=== PATIENT | male | born 1985 | race Caucasian/White ===

== ENCOUNTER 2017-11-17 08:36 | Emergency (ER) | payer BC ==
[2017-11-17 08:49] VITALS: BP 167/79
--- NOTE | 2017-11-17 09:04 | UC ---
General HPI - HPI Summary HPI Summary: Patient presents with an unremarkable past medical history. He does report pending compensation case regarding knee injury that occurred two years ago, and he was scheduled to go to the pain clinic today but cancelled. He presents today with complaints of generalized body aches, headaches, fatigue , malaise, chest congestion and cough. He denies any recorded fever, but states he believes he has been running a fever. He denies any chest, or abdominal pain , nausea, vomiting, diarrhea, rash. He denies any recent travel or ill contacts. - History of Current Complaint Chief Complaint: UCGeneralIllness Stated Complaint: FEVER,BODYACHES Time Seen by Provider: 11/17/17 08:52 Hx Obtained From: Patient Onset/Duration: Sudden Onset, Lasting Hours Timing: Constant Onset Severity: Moderate Current Severity: Severe Pain Location at: generalized. Associated Signs & Symptoms: Positive: Fever, Headache - Allergy/Home Medications Allergies/Adverse Reactions: Allergies Allergy/AdvReac Type Severity Reaction Status Date / Time No Known Allergies Allergy Verified 11/17/17 08:49 Home Medications: Home Medications Acetaminophen [Acetaminophen Extra Stren] 2 tab PO Q6HR PRN 11/17/17 [History Confirmed 11/17/17] Amphetamine-Dextroamphetamine [Adderall 30 mg-] 1 tab PO BID 11/17/17 [History Confirmed 11/17/17] PMH/Surg Hx/FS Hx/Imm Hx Previously Healthy: Yes - Surgical History Surgical History: Yes Surgery Procedure, Year, and Place: 08/2016- Right Knee surgery- [facility] - Family History Known Family History: Positive: Unknown - Social History Occupation: Unemployed Lives: Alone Alcohol Use: Rare Substance Use Type: None Smoking Status (MU): Former Smoker Type: Cigarettes Amount Used/How Often: 1/2 PPD Length of Time of Smoking/Using Tobacco: 1 can daily - Immunization History Most Recent Influenza Vaccination: NOT UTD Most Recent Tetanus Shot: UNK Most Recent Pneumonia Vaccination: NEVER HAD Review of Systems Constitutional: Fever, Chills, Fatigue Skin: Negative Eyes: Negative ENT: Nasal Discharge, Sinus Congestion Respiratory: Cough Cardiovascular: Negative Gastrointestinal: Negative Genitourinary: Negative Motor: Negative Neurovascular: Negative Musculoskeletal: Arthralgia, Myalgia Neurological: Negative Psychological: Negative Is Patient Immunocompromised?: No All Other Systems Reviewed And Are Negative: Yes Physical Exam Triage Information Reviewed: Yes Appearance: Well-Appearing Vital Signs: Initial Vital Signs Temp 100.3 F 11/17/17 08:44 Pulse 100 11/17/17 08:44 Resp 18 11/17/17 08:44 BP 167/79 11/17/17 08:44 Pulse Ox 99 11/17/17 08:44 Vital Signs Reviewed: Yes Eye Exam: Normal ENT Exam: Normal Neck exam: Normal Neck: Positive: 1 Respiratory Exam: Normal Respiratory: Positive: Lungs clear, Normal breath sounds, No respiratory distress, No accessory muscle use Cardiovascular Exam: Normal Cardiovascular: Positive: RRR, No Murmur Abdominal Exam: Normal Musculoskeletal Exam: Normal Skin Exam: Normal Course/Dx - Course Course Of Treatment: Patient presents with past medical history of knee injury and reported chronic knee pain. He presents today with the primary complaint of generalized body aches, headache with no focal neurologic findings. VS noted to be BP 176/79, T-100.3, P-100, R-18. I appreciate and have reviewed the abnomral VS which I feel are in responce to illness. Patient has no know history of HTN, he is slightly tachcardic from his fever, and generalized stress responce from illness. Rapid influenza was positive and the patient was treated with Tamiflu 75 mg by mouth twice daily for 5 days. I also recommended he rest, increase fluids, and take tylenol and or advil for the myalgias. He was told to follow up with his orthopedist for the injury and complaints of two year onset knee pain, as they have been following him and treating him for this chronic condition. And he is not here for those concerns today. - Differential Dx - Multi-Symptom Differential Diagnoses: Other - influenza Provider Diagnoses: influenza Discharge - Discharge Plan Condition: Stable Disposition: HOME Prescriptions: Ibuprofen TAB* [Motrin TAB* 600 MG] 600 mg PO Q6H PRN #20 tab PRN Reason: generalized discomfort. Oseltamivir CAP* [Tamiflu CAP*] 75 mg PO BID #10 cap Patient Education Materials: Influenza (ED) Forms: *Work Release Referrals: No Primary Care Phys,NOPCP [Primary Care Provider] -
== END 2017-11-17 09:22 | disposition home or self-care (01) ==
LOC: UCEAST 08:36
DX: J11.1 Influenza due to unidentified influenza virus with other respiratory manifestations (principal); M25.569 Pain in unspecified knee; G89.29 Other chronic pain; Z87.891 Personal history of nicotine dependence
CPT/HCPCS: 87502; 99212; G0463

== ENCOUNTER 2018-01-19 09:09 | Emergency (ER) | payer OTHER ==
[2018-01-19 09:23] VITALS: BP 143/85
[2018-01-19] MEDS ORDERED: HYDROcodone/ACETAMIN 5-325 MG* 1 TAB PO ONE ×2 (10:06→10:12)
--- NOTE | 2018-01-19 10:22 | UC ---
Knee Pain HPI - HPI Summary HPI Summary: 32 year old male here with right knee pain. Reports surgery about two years ago but in the past few weeks, progressively worsening pain. Unable to see his surgeon until 01/30. he has been taking tylenol and ibuprofen with no relief. - History of Current Complaint Chief Complaint: UCLowerExtremity Stated Complaint: KNEE PAIN Time Seen by Provider: 01/19/18 09:52 Hx Obtained From: Patient Onset/Duration: Gradual Onset Severity Initially: Mild Severity Currently: Moderate Pain Intensity: 5 Character: Dull Aggravating Factor(s): Weight Bearing Alleviating Factor(s): Rest Associated Signs And Symptoms: Negative: Swelling, Redness, Bruising, Weakness, Numbness, Tingling - Allergies/Home Medications Allergies/Adverse Reactions: Allergies Allergy/AdvReac Type Severity Reaction Status Date / Time No Known Allergies Allergy Verified 01/19/18 09:17 Home Medications: Home Medications Ibuprofen TAB* [Motrin TAB* 600 MG] 800 mg PO BID 01/19/18 [History Confirmed ] PMH/Surg Hx/FS Hx/Imm Hx - Surgical History Surgical History: Yes Surgery Procedure, Year, and Place: 08/2016- Right Knee surgery- [facility] - Family History Known Family History: Positive: Unknown - Social History Alcohol Use: Rare Substance Use Type: None Smoking Status (MU): Heavy Every Day Tobacco Smoker Type: Cigarettes, Smokeless Tobacco Amount Used/How Often: 1/2 PPD Length of Time of Smoking/Using Tobacco: 1 can daily Have You Smoked in the Last Year: Yes - Immunization History Most Recent Influenza Vaccination: NOT UTD Most Recent Tetanus Shot: UNK Most Recent Pneumonia Vaccination: NEVER HAD Review of Systems Constitutional: Negative Skin: Negative Eyes: Negative ENT: Negative Respiratory: Negative Cardiovascular: Negative Gastrointestinal: Negative Genitourinary: Negative Motor: Negative Neurovascular: Negative Musculoskeletal: Negative Neurological: Negative Psychological: Negative All Other Systems Reviewed And Are Negative: Yes Physical Exam Triage Information Reviewed: Yes Appearance: Well-Appearing, No Pain Distress, Well-Nourished Vital Signs: Initial Vital Signs Temp 37.4 C 01/19/18 09:18 Pulse 98 01/19/18 09:18 Resp 16 01/19/18 09:18 BP 143/85 01/19/18 09:18 Pulse Ox 98 01/19/18 09:18 Vital Signs Reviewed: Yes Eye Exam: Normal Musculoskeletal: Positive: Other: - Scar over right knee Bony crepitus with ranging, Sensory deficit over common fibular nerve (old) Skin Exam: Normal Knee Pain Course/Dx - Course Course Of Treatment: Right knee pain. Istopped did not reveal any recent rx for controlled pain medcations. Will give few days supply of norco and reassess - Differential Dx/Diagnosis Differential Diagnosis/HQI/PQRI: Sprain, Strain, Tendonitis Provider Diagnoses: Right knee pain Discharge - Discharge Plan Condition: Good Disposition: HOME Prescriptions: HYDROcodone/ACETAMIN 5-325 MG* [Cedar 5-325 TAB*] 1 tab PO Q8H PRN #12 tab MDD 2 PRN Reason: Pain Naproxen [Naproxen 500 mg] 500 mg PO BID PRN #1 tab MDD 2 PRN Reason: Pain Patient Education Materials: Knee Pain (ED) Forms: *Work Release Referrals: No Primary Care Phys,NOPCP [Primary Care Provider] - Additional Instructions: Follow up with your orthopedics doctor
== END 2018-01-19 10:26 | disposition home or self-care (01) ==
LOC: UCEAST 09:09
DX: M25.561 Pain in right knee (principal); F17.210 Nicotine dependence, cigarettes, uncomplicated; F17.220 Nicotine dependence, chewing tobacco, uncomplicated
CPT/HCPCS: 99212; G0463

== ENCOUNTER 2018-06-26 09:05 | Day surgery (SDC) | payer OTHER ==
--- NOTE | 2018-06-16 12:12 | HP ---
PREOPERATIVE HISTORY AND PHYSICAL: DATE OF ADMISSION: 06/26/18 [facility] PROVIDER: Gage Porter MD * (DICTATED BY FLEX CRISTINA) CHIEF COMPLAINT: Right knee pain. HISTORY OF PRESENT ILLNESS: Griffin is a 32-year-old male, who has been followed by Dr. Porter for ongoing pain in his right knee. He did have previous surgery on the knee for a patellar dislocation and tendon repair. He states that he had significant pain after the surgery which did seem to improve ; however, he is having constant amount of pain in the knee that is keeping him unable to work at this time. PAST MEDICAL HISTORY: Asthma and chronic pain. PAST SURGICAL HISTORY: Right knee stabilization. He reports no complications with the anesthesia. He did have significant postoperative pain control problems. CURRENT MEDICATIONS: 1. Cyclobenzaprine 10 mg as needed for spasms. 2. Lyrica 100 mg t.i.d. 3. Adderall 30 mg b.i.d. 4. Amitriptyline 25 mg q.h.s. 5. Naproxen 250 mg 2 tabs p.o. b.i.d. p.r.n. 6. Nucynta 50 mg p.o. b.i.d. 7. Albuterol inhaler as needed. 8. Advair inhaler once daily. ALLERGIES: No known drug allergies. 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 He smokes 5 cigarettes per day and has for 10 years. He rarely uses alcohol, he rarely smokes marijuana. REVIEW OF SYSTEMS: A 14-point review of systems was discussed with the patient. All systems were negative except discussed in the HPI. PHYSICAL EXAMINATION GENERAL: He is a well-developed, well-nourished male, in no acute distress at rest. He is alert and oriented x3 with appropriate mood and affect. VITAL SIGNS: The patient is 5 feet 6 inches, 190 pounds. Blood pressure 128/80 , pulse 72, respirations 18. HEENT: Normocephalic, atraumatic. Hearing and vision are grossly intact. NECK: Trachea is midline. RESPIRATORY: Lungs are clear to auscultation bilaterally. No wheezes, rales, or rhonchi. CARDIOVASCULAR: Regular rate and rhythm. No murmurs, rubs, or gallops. Normal S1, S2. ABDOMEN: Soft, nondistended, nontender. Normal bowel sounds. EXTREMITIES: Right lower extremity: The skin is intact with no erythema or warmth. He has well-healed incisions. He has pain with range of motion and crepitus. He can go 0 to 110 degrees before he has pain. Stable varus and valgus stress. Calf is soft and nontender. Sensation to light touch is intact distally. He has a normal vascular exam. IMPRESSION: Right knee osteochondritis dissecans. PLAN: The patient is to undergo right knee arthroscopic surgery with chondroplasty and removal of loose body by Dr. Porter on 06/26/18. The risks, benefits, and postoperative course were discussed with the patient at length and he would like to proceed. All of his questions were answered to his full satisfaction. FLEX CRISTINA [id number]/[facility] #: [id number] MTDRosalio
[~2018-06-26 09:05] MED LIST: Buffered Lidocaine 0.9% SYRIN* 5 ML/SYR SYRINGE INTRADERM ONE; Midazolam* 1 MG/ML 2 ML VIAL (2 MG) ONE; fentaNYL* 50 MCG/ML 2 ML VIAL (100 MCG VIAL) ONE
[2018-06-26] MEDS ORDERED: ceFAZolin 2 GM PREMIX (*) 2 GM/50 ML BAG IVPB ONE (09:10)
[2018-06-26] MEDS ORDERED: Bupivacaine 0.5% PF 10 ML VIAL INJ ONE (10:41)
[2018-06-26] MEDS ORDERED: Lidocaine 1% MPF wEPI 200,000* 30 ML SDV ONE (10:41)
[2018-06-26] MEDS ORDERED: HYDROmorphone INJ* 0.5 MG/0.5 ML SYRINGE IV PRN (11:03)
[2018-06-26] MEDS ORDERED: oxyCODONE/Acetamin 5/325 MG* TAB PO PRN (11:03)
[2018-06-26] MEDS ORDERED: Naloxone* 0.4 MG/ML 1 ML VIAL IV PRN (11:03)
[2018-06-26] MEDS ORDERED: Acetaminophen TAB* 325 MG PO PRN (11:03)
[2018-06-26] MEDS ORDERED: oxyCODONE/Acetamin 5/325 MG* TAB ONE (12:11)
[2018-06-26 12:33] VITALS: BP 131/81
--- NOTE | 2018-06-26 21:53 | OP ---
CC: PCP * DATE OF OPERATION: 06/26/18 [facility] DATE OF : 89 SURGEON: Gage Porter MD BLEACH LIQUOR MAKER: None. ANESTHESIOLOGIST: Dr. Cespedes. ANESTHESIA: General. PRE-OP DIAGNOSIS: Suspected loose body with possible failure of his biocartilage graft. POST-OP DIAGNOSIS: Suspected loose body with possible failure of his biocartilage graft. OPERATIVE PROCEDURE: 1. Right knee arthroscopy with lysis of adhesions. 2. Synovectomy of the anterior, medial and lateral compartments. 3. Partial lateral meniscectomy. 4. Chondroplasty of the medial edge of the trochlea. COMPLICATIONS: None. ESTIMATED BLOOD LOSS: Minimal. INDICATIONS: Griffin Briceno is a 32-year-old male who has had a previous tibial tubercle osteotomy and a biocartilage graft to his trochlea for an unstable cartilage defect. This was a work-related injury. He did surgery almost 2 years ago in July, he struggled with pain afterwards, he struggled with quadriceps function and has had numerous other issues. We have tried injections , antiinflammatories, we have tried viscosupplementation, he continues to struggle with pain. There is concern that there may be a loose body or that the graft did not take. I did explain to him that there is a chance we can do surgery and he could have no relief of his symptoms after obtaining worker compensation approval, he elected to proceed with surgery. Risks and benefits were discussed at length that included, but were not limited to, bleeding; infection; damage to nerves, vessels, surrounding structures; wound nonhealing; persistent pain; need for further surgery; scarring; stiffness; incomplete release of symptoms; risk of anesthesia. DESCRIPTION OF PROCEDURE: The patient was greeted in the preoperative area by the attending surgeon. Correct extremity was marked, consent was confirmed. The patient was brought back to the operating suite where he was placed in the supine position on the operating table. He then underwent general anesthesia and endotracheal intubation after which a nonsterile tourniquet was placed high in the proximal thigh. This was not inflated. The lateral post was positioned. The right leg was prepped and draped in the usual sterile fashion beginning with chlorhexidine soap, scrub, and alcohol wipe, and a final prep with ChloraPrep. After appropriate surgical pause indicating site, side, procedure, and administration of antibiotics, the knee was then intraarticularly injected with 1% lidocaine with epi. The lateral portal was made using 11 blade. The scope was positioned in the joint in the medial compartment. An 18-gauge needle was used to help localize the anterior medial portal. Once this was done, a shaver was used to debride back the abundant thick scar tissue as it was difficult to mobilize in the joint. The ACL and PCL were intact. There were little loose debris, fragments of cartilage floating around but none of these were greater than 5 mm. The electrocautery device was then used to do a synovectomy anteriorly, medially and laterally and around the patella itself. This helped to mobilize the knee cap more which allowed for visualization, the patch itself was intact and had a really good border about the lateral and superior aspect of the trochlea but medially, there was a small area where there was still some exposed grade 3 cartilage changes; however, this was probably 2 mm in width and may be less than a centimeter in length. This had some unstable flap and was debrided back and a small chondroplasty was done. After the synovectomy was completed, the remainder of the patella had grade 1 changes, the remainder of the femoral condyles had grade 0-1 changes, the medial and lateral gutters were intact without any loose debris or loose bodies. The ACL was intact, PCL was intact, medial compartment was examined, there were grade 0-1 changes in the medial femoral condyle and medial plateau, medial meniscus was intact laterally. Attention was directed laterally and the lateral compartment was visualized, there were grade 1 changes to the lateral femoral condyle and 1 to the plateau. The lateral meniscus had fraying at the root which was debrided back using the shaver. The electrocautery device was used to maintain hemostasis at all times and again the graft was gently probed to make sure it was intact. Final images were obtained. All fluid and debris was removed from the joint and was thoroughly lavaged. The portals were also irrigated and the portals were closed with 3-0 nylon. The knee was intraarticularly injected with 0.25% Marcaine plain. Sterile dressings were applied as well as a Cryo- cuff. He was awoken from anesthesia and transferred to PACU in stable condition. POSTOPERATIVE PLAN: He will be weightbearing as tolerated with crutches for the first 5 days. He will be discharged on pain medications as well as antibiotics. This is his repeat surgery. We will coordinate his pain management with his pain clinic. We will see the patient back in 14 days, the stitches should be kept in longer because of the abundant synovectomy scar tissue done to make sure that it heals well. [id number]/[facility] #: [id number] MTDD
== END 2018-06-26 12:50 | disposition home or self-care (01) ==
LOC: OREAST 09:05
PROVIDERS: ATTEND Orthopaedic Surgery
DX: S83.281A Other tear of lateral meniscus, current injury, right knee, initial encounter (principal); M93.261 Osteochondritis dissecans, right knee; X58.XXXA Exposure to other specified factors, initial encounter; Y92.9 Unspecified place or not applicable; Z72.0 Tobacco use; J45.909 Unspecified asthma, uncomplicated; M25.561 Pain in right knee; F90.9 Attention-deficit hyperactivity disorder, unspecified type; F41.8 Other specified anxiety disorders
CPT/HCPCS: A9270-GY; J0690; J2001; J2250; J3010

== ENCOUNTER 2019-11-14 13:04 | Emergency (ER) | payer BC ==
[2019-11-14] MEDS ORDERED: EPINEPHRINE 1 MG/ML 1 ML VIAL IM ONE (13:19)
[2019-11-14] MEDS ORDERED: methylPREDNISolone 125 MG* 2 ML VIAL IM ONE (13:20)
--- NOTE | 2019-11-14 13:22 | UC ---
Allergic Reaction HPI - HPI Summary HPI Summary: Patient is a 34-year-old male that presents here for evaluation of an allergic reaction. He states that about 11 AM this morning he developed the onset of the severe generalized pruritus as well as generalized erythema. He later developed edema of his lips as well as tightness in his throat. The only thing he can attributes this to is his symptoms started soon after he put on a sweater which was just washed. He said there was a lot of glitter on it. He denies any chest pain or shortness of breath. He took 2 Benadryl about an hour ago and has noted improvement in his symptoms. He has never had a reaction like this before. - History of Current Complaint Chief Complaint: UCAllergicReaction Stated Complaint: RASH Time Seen by Provider: 11/14/19 13:10 Hx Obtained From: Patient Onset/Duration: Sudden Onset, Lasting Hours Severity Initially: Severe Severity Currently: Moderate Pain Intensity: 0 Pain Scale Used: 0-10 Numeric Location: Diffuse Character: Swelling, Pruritus Aggravating Factor(s): Heat Alleviating Factor(s): Heat Associated Signs And Symptoms: Positive: Hoarseness, Rash, Throat Tightening. Negative: Abdominal Pain, Chest Pain, Cough Wheezing, Diaphoresis, Difficulty Breathing, Lightheadedness, Nausea, Syncope, Vomiting - Allergies/Home Medications Allergies/Adverse Reactions: Allergies Allergy/AdvReac Type Severity Reaction Status Date / Time No Known Allergies Allergy Verified 11/14/19 13:08 Home Medications: Home Medications diphenhydrAMINE HCl [Benadryl Allergy 25 MG CAP] 25 mg PO ONCE 11/14/19 [ History Confirmed 11/14/19] PMH/Surg Hx/FS Hx/Imm Hx Previously Healthy: Yes Respiratory History: Asthma - Surgical History Surgical History: Yes Surgery Procedure, Year, and Place: 08/2016- Right Knee surgery (trochlea chondroplasty and allografting, tibial tubercle osteotomy) - [facility]. 2018 - R knee surgery [facility] [place] - Family History Known Family History: Positive: Non-Contributory - Social History Alcohol Use: None Alcohol Amount: LESS THEH 1 DRINK/MONTH Substance Use Type: Marijuana Substance Use Comment - Amount & Last Used: bedtime Smoking Status (MU): Heavy Every Day Tobacco Smoker Type: Cigarettes Amount Used/How Often: 1/2 PPD Length of Time of Smoking/Using Tobacco: 1 can daily Have You Smoked in the Last Year: Yes Household Exposure Type: Cigarettes - Immunization History Most Recent Influenza Vaccination: NOT UTD Most Recent Tetanus Shot: UNK Most Recent Pneumonia Vaccination: NEVER HAD Review of Systems All Other Systems Reviewed And Are Negative: Yes Constitutional: Positive: Negative Skin: Positive: Rash Eyes: Positive: Negative ENT: Positive: Sinus Congestion Respiratory: Positive: Negative Cardiovascular: Positive: Negative Gastrointestinal: Positive: Negative Genitourinary: Positive: Negative Motor: Positive: Negative Neurovascular: Positive: Negative Musculoskeletal: Positive: Negative Neurological: Positive: Negative Psychological: Positive: Negative Physical Exam Triage Information Reviewed: Yes Appearance: Well-Appearing, No Pain Distress, Well-Nourished Vital Signs: Initial Vital Signs Temp 98.3 F 11/14/19 13:10 Pulse 76 11/14/19 13:10 Resp 18 11/14/19 13:10 BP 142/80 11/14/19 13:10 Pulse Ox 97 11/14/19 13:10 Vital Signs Reviewed: Yes Eyes: Positive: Conjunctiva Clear ENT: Positive: Hearing grossly normal, Nasal congestion, Uvula midline. Negative: Tonsillar swelling, Tonsillar exudate, Trismus, Muffled voice, Hoarse voice Neck: Positive: Supple, Nontender, No Lymphadenopathy Respiratory: Positive: Chest non-tender, Lungs clear, Normal breath sounds, No respiratory distress, No accessory muscle use Cardiovascular: Positive: RRR, No Murmur Musculoskeletal: Positive: ROM Intact, No Edema Neurological: Positive: Alert Psychological Exam: Normal Skin: Positive: Other - diffuse erthyema, slightly hoarse, no stridor Re-Evaluation - Re-Evaluation First Eval Re-Evaluation Time: 13:50 Change: Improved - no itching/ decreased Second Eval Change: Improved - minimal pruritis Allergic Reaction Course/Dx - Differential Dx/Diagnosis Provider Diagnosis: Anaphylaxis Discharge ED - Sign-Out/Discharge Documenting (check all that apply): Patient Departure All imaging exams completed and their final reports reviewed: No Studies - Discharge Plan Condition: Stable Disposition: HOME Prescriptions: EPINEPHrine [Epipen 2-Terrell] 0.3 mg IM ONCE PRN #1 inj PRN Reason: Allergy Symptoms predniSONE TAB* [Deltasone 20 MG TAB*] 40 mg PO DAILY #8 tab Patient Education Materials: Anaphylaxis (ED) Referrals: Antoine Gupta MD [Medical Doctor] - As Soon As Possible Devan Funk MD [Medical Doctor] - As Soon As Possible Additional Instructions: I suggest you follow up with an sea captain first available appt TO ER IF SYMPTOMS RECUR OR WORSEN benadryl 25 mg two tabs every 4 hours as needed for rash - Billing Disposition and Condition Condition: STABLE Disposition: Home
[2019-11-14] MEDS ORDERED: Famotidine TAB* 20 MG PO ONE ×2 (13:51)
[2019-11-14] MEDS ORDERED: predniSONE TAB* 20 MG PO ONE (13:52)
[2019-11-14] MEDS ORDERED: hydrOXYzine HCL TAB* 25 MG PO ONE (14:27)
[2019-11-14 14:31] VITALS: BP 132/67
== END 2019-11-14 14:44 | disposition home or self-care (01) ==
LOC: UCEAST 13:04
DX: T78.2XXA Anaphylactic shock, unspecified, initial encounter (principal); J45.909 Unspecified asthma, uncomplicated; F17.210 Nicotine dependence, cigarettes, uncomplicated; R09.81 Nasal congestion; Y92.9 Unspecified place or not applicable
CPT/HCPCS: 96372; 99213; A9270-GY; G0463; J2930; J7512